=== PATIENT | male | born 1955 | race Caucasian/White ===

== ENCOUNTER 2017-06-28 02:23 | Emergency (ER) | payer MEDICARE, OTHER ==
[~2017-06-28] VITALS: Ht 185.4 cm; Wt 88.5 kg
--- NOTE | ~2017-06-28 | CR181 ---
[facility] A Service of [facility] RADIOLOGY TEXT RESULTS PATIENT: ADA SHEA JR LOCATION: SED : 59 UNIT #: [id number] AGE: [address]: Reno Young MD SEX: M ORDER DR: [id number] [place] [id number] E MR#: [id number] Acc #: [id number] NAME: ADA SHEA : 1955 SEX: M STUDY DATE/TIME: 06/28/2017 3:08 UNIT: SED ROOM: STUDY DESCRIPTION: CR Lumbar Spine 2 or 3 Views Attending Physician: Reno Young M.D. Ordering Physician: Reno Young M.D. Primary Care Physician: Primary Care Physician No MEDICAL IMAGING REPORT This report is preliminary unless electronic signature is present. EXAM Lumbar spine series 06/28/2017 HISTORY 61-year-old male in the ED complaining of severe low back pain over the last 2 days. Previous spine injuries and lumbar spine surgery. TECHNIQUE Three-view lumbar spine series. FINDINGS No acute osseous abnormality is demonstrated. Chronic fracture deformity at L3 with lumbar fusion spanning from L2-L4. No evidence of hardware failure. Phcy-[id number]-uftlqghb chronic vertebral compression fracture deformity at T12. Degenerative disc space changes at L5-S1 and moderate lower lumbar degenerative facet arthropathy. Lumbar vertebral alignment is normal. There has been no significant change when compared with the previous study of 10/31/2015. IMPRESSION 1. No acute osseous abnormality. No change since 10/31/2015. 2. Postop changes posterior lumbar fusion spanning from L2-L4 across old fracture deformity of the L3 vertebral body, stable. 3. Chronic vertebral compression deformity at T12, unchanged. 4. Lower lumbar degenerative changes. Lumbar vertebral alignment is normal. Dictated by... Zachery Rose M.D. [facility] A Service of [facility] RADIOLOGY TEXT RESULTS PATIENT: ADA SHEA JR LOCATION: SED : 59 UNIT #: [id number] AGE: [address]: Reno Young MD SEX: M ORDER DR: THIS IS AN ELECTRONICALLY VERIFIED REPORT Zachery Rose M.D. at 06/28/2017 9:46 PM GLADYS/zara TD: 06/28/2017 10:46 JOB #: [id number] MEDICAL IMAGING REPORT Page 1 of 1
[~2017-06-28 02:23] MED LIST: ALBUTEROL2.5 MG/0.5 IH; ASPIRIN81 M2 PO; CIPRO PO; CRESTOR; CYMBALTA PO; FLEXERIL PO; FOLIC ACID PO; KETOPROFEN PO; MEDROL DOSEPAK4 MG; MS CONTIN30 M1 PO; NEURONTIN PO; NICOTINE TRANSD21 MG EXT; NO MEDICATIONS; NORFLEX100 M1; PERCOCET 10/3251 TAB; PERCOCET10 PO; ROXICODONE5 MG DOB; SENNA S TABLET1 TAB PO; SYMBICORT INH; THIAMINE HCL100 MG PO; [UNRECOGNIZED DRUG - OTHER] MC
== END 2017-06-28 03:58 | disposition home or self-care (01) ==
LOC: SED 02:23
DX: S39.012A Strain of muscle, fascia and tendon of lower back, initial encounter (principal); M54.42 Lumbago with sciatica, left side; M54.41 Lumbago with sciatica, right side; I10 Essential (primary) hypertension; J44.9 Chronic obstructive pulmonary disease, unspecified; F17.210 Nicotine dependence, cigarettes, uncomplicated; X58.XXXA Exposure to other specified factors, initial encounter
CPT/HCPCS: 72100; 96372; 99283; J1885